=== PATIENT | male | born 1950 | race Caucasian/White ===

== ENCOUNTER → 2017-03-21 | Outpatient (CLI) | payer MEDICARE ==
[~2017-03-21] MED LIST: AMOX-291 PO; ASPI-496 PO; AZEL205.2 NAS; CHOL100011 PO; DOCU100C8 PO; GABA300C10 PO; OXYC15TA PO; POLY17PO5 PO; TRAZ50TA18 PO
== END | disposition home or self-care (01) ==
LOC: STAR 08:03
PROVIDERS: ATTEND Urology
DX: Z01.818 Encounter for other preprocedural examination (principal); R94.31 Abnormal electrocardiogram [ECG] [EKG]; N39.3 Stress incontinence (female) (male); N39.41 Urge incontinence
CPT/HCPCS: 81001; 87077; 87086; 93005

== ENCOUNTER 2017-10-02 09:00 | Day surgery (SDC) | payer MEDICARE ==
[~2017-10-02] VITALS: Ht 170.2 cm; Wt 80.0 kg
[~2017-10-02 09:00] MED LIST changes: +BUPIVACAINE/PF 0.5% ONE; +DOCU100C33 PO; -DOCU100C8 PO; +EPINEPHRINE 1 MG/ML, 1ML ONE
[2017-10-02] MEDS ORDERED: LACTATED RINGERS 1,000 ML IV SCH (09:19)
[2017-10-02] MEDS ORDERED: PLEASE ENTER HEIGHT AND WEIGHT MC SCH (09:30)
[2017-10-02] MEDS ORDERED: LIDOCAINE 1%, 2ML SQ PRN (09:30)
[2017-10-02 09:46] VITALS: BP 135/78
[2017-10-02] MEDS ORDERED: CEFD300C37 PO (10:09)
[2017-10-02] MEDS ORDERED: NEOMY/POLYMYXIN B GU IRR. 1 ML IRRIG ONE (10:13)
[2017-10-02] MEDS ORDERED: FENTANYL PF 250 MCG/5ML ONE (10:36)
[2017-10-02] MEDS ORDERED: MIDAZOLAM 1 MG/ML, 2ML ONE (10:36)
[2017-10-02] MEDS ORDERED: PROPOFOL 10 MG/ML, 20ML ONE (10:38)
[2017-10-02] MEDS ORDERED: ONDANSETRON 2MG/ML, 2ML ONE (12:06)
[2017-10-02] MEDS ORDERED: DEXAMETHASONE 4 MG/ML, 1ML ONE (12:06)
[2017-10-02] MEDS ORDERED: CEFTRIAXONE 1,000 MG ONE (12:12)
[2017-10-02] MEDS ORDERED: ACETAMINOPHEN 325 MG TABLET PO PRN (12:30)
[2017-10-02] MEDS ORDERED: OXYcodone 5 MG/5 ML ORAL.SOL UDC PO PRN (12:30)
[2017-10-02] MEDS ORDERED: HYDROcodone/APAP 7.5-325MG/15ML UDC PO PRN (12:30)
[2017-10-02] MEDS ORDERED: ONDANSETRON 2MG/ML, 2ML IVPush PRN (12:30)
[2017-10-02] MEDS ORDERED: hydrALAzine 20 MG/ML, 1ML IV PRN (12:30)
[2017-10-02] MEDS ORDERED: HYDROmorphone 1 MG/ML, 1ML IV PRN (12:30)
[2017-10-02] MEDS ORDERED: OXYcodone/APAP 5/325MG TABLET PO PRN (13:00)
[2017-10-02] MEDS ORDERED: ACETAMINOPHEN 325 MG TABLET ONE (13:08)
[2017-10-02] MEDS ORDERED: FENTANYL PF 100 MCG/2ML ONE (13:08)
[2017-10-02] MEDS ORDERED: OXYcodone 5 MG/5 ML ORAL.SOL UDC ONE (13:09)
[2017-10-02] MEDS: FENTANYL PF 100 MCG/2ML IV PRN ×2 (13:10→13:32)
== END 2017-10-02 14:35 ==
LOC: OUT 09:00
PROVIDERS: ATTEND Urology
DX: T81.30XA Disruption of wound, unspecified, initial encounter (principal); I10 Essential (primary) hypertension; Z88.1 Allergy status to other antibiotic agents; Z79.82 Long term (current) use of aspirin; Z85.51 Personal history of malignant neoplasm of bladder; Z98.890 Other specified postprocedural states; Y83.8 Other surgical procedures as the cause of abnormal reaction of the patient, or of later complication, without mention of misadventure at the time of the procedure; Y92.89 Other specified places as the place of occurrence of the external cause
CPT/HCPCS: 13160; 93005; J0171; J0696; J1100; J2250; J2405; J2704; J3010; J3490